=== PATIENT | male | born 1950 | race Caucasian/White ===

== ENCOUNTER → 2020-05-21 | Day surgery (SDC) | payer MEDICARE ==
--- NOTE | 2020-05-19 20:59 | Pre Op History & Physical ---
DATE OF SURGERY: May 21, 2020. CHIEF COMPLAINT: Hoarseness. HISTORY OF PRESENT ILLNESS: This 69-year-old male is a one pack-a-day smoker and a reformed alcoholic. The patient has been hoarse according to him for two months. The patient denies any dysphagia or odynophagia. The patient has some weight loss by choice. He has seen Dr. Josie Monet, an transport rn, which he had a panendoscopy and biopsy apparently was negative for malignancy. The medical record has not arrived at the time of this dictation. The patient has no throat pain. He denies any dysphagia, odynophagia, or shortness of breath. ALLERGIES: HE HAS NO KNOWN ALLERGY TO MEDICATION. MEDICATIONS: He is on metformin, gabapentin, lisinopril. Pantoprazole and atorvastatin. SOCIAL HISTORY: He smokes about a pack a day and has not drunk for 17 years. The patient has previous examination under anesthesia according to him of the larynx by another transport rn. No other surgery was noted. REVIEW OF SYSTEMS: System review showed no recent cardiovascular, respiratory, or GI problem. PAST MEDICAL HISTORY: The patient has type 2 diabetes. He has no hypertension or coronary artery disease. The patient has no significant medical problems. PAST SURGICAL HISTORY: No other surgery the patient could recall. PHYSICAL EXAMINATION: VITAL SIGNS: The patient's vital signs were within normal limits. EAR EXAM: Showed normal tympanic membrane bilaterally. NASAL EXAM: Showed deviated nasal septum on the right side about 40%. OROPHARYNX AND ORAL CAVITY: Show no obvious abnormality. Nasal endoscopy showed the patient has mobile vocal cords bilaterally with no lesion in the hypopharynx. 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 NECK: Showed no lymph node or thyroid palpable. CHEST: Showed good air entry bilaterally. CARDIOVASCULAR: Showed S1, S2. No murmur noted. ASSESSMENT AND PLAN: Mr. 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 The suggested treatment is panendoscopy, microlaryngoscopy, and biopsy and other necessary procedures. Complication of procedure includes but not limited to bleeding, infection, perforation of the esophagus, pneumomediastinum, mediastinitis, airway compromise, persistent hoarseness, persistent recurrence of the problem, and airway compromise. Alternatives will be continued observation, repeat flexible laryngoscopy exam and biopsy of the vocal cord in the office setting. The patient has elected to undergo surgical procedure. The patient had requested that because he was a reformed alcoholic no pain medication be given. Kiko Bolaños MD DKH/MODL /[id number] cc: Norman Alarcon MD
[~2020-05-21] MED LIST: ASPIRIN81 MG PO; DEXAMETHASONE SOD PHOS INJ 4 MG/ML VIAL ONE; EPINEPHRINE HCL 1:1000 1ML 1 MG/ML AMP ONE; FENTANYL CITRATE/PF 100MCG/2 ML INJ ONE; GABAPENTIN600 MG PO; LIDOCAINE HCL (LTA) 4 ML SOLN ONE; LIDOCAINE HCL 2% LOCAL INJ 5 ML SDV VIAL INJ ONE; LIPITOR10 MG PO; LISINOPRIL10 MG PO; METFORMIN HCL500 MG PO; MULTI-VITAMIN1 EACH PO; ONDANSETRON HCL INJ 2MG/ML 2ML 2 MG/ML VIAL ONE; PANTOPRAZOLE SO40 MG PO; PROPOFOL IV EMULSION 10 MG/ML 20 ML VIAL ONE; ROCURONIUM BROMIDE 10 MG/ML 5ML VIAL IV ONE; SEVOFLURANE INHAL SOLN 250 ML PEN BTL ONE; SUGAMMADEX SODIUM 200 MG/2 ML VIAL IV ONE
--- NOTE | 2020-05-21 10:00 | Diagnostic Imaging Report ---
EXAMINATION: CHEST 2 VIEWS INDICATION: Preop for neck biopsy ^PREOP ^[id number] ^[id number] ^BED 7 PREOP COMPARISON: None FINDINGS: TUBES and LINES: None. LUNGS: Lungs are well inflated. Lungs are clear. There is no evidence of pneumonia or pulmonary edema. PLEURA: No pleural effusion or pneumothorax. HEART AND MEDIASTINUM: The cardiomediastinal silhouette is unremarkable. BONES AND SOFT TISSUES: No acute osseous lesion. Soft tissues are unremarkable. UPPER ABDOMEN: No free air under the diaphragm. IMPRESSION: No acute thoracic abnormality. Signed by: Dr. Anselmo Mayfield M.D. on 05/21/2020 9:57 AM
[2020-05-21 11:55] VITALS: BP 124/58
--- NOTE | 2020-05-21 13:33 | Operative Report ---
DATE OF PROCEDURE: 05/21/2020 SURGEON: Kiko Bolaños MD CHIEF COMPLAINT: Hoarseness with chronic changes in vocal folds on both sides. POSTOPERATIVE DIAGNOSIS: Hoarseness with chronic changes in vocal folds on both sides. OPERATIVE PROCEDURE: Direct laryngoscopy, rigid esophagoscopy, rigid bronchoscopy, microlaryngoscopy, and biopsy of the right and left vocal folds with micro flaps. ANESTHESIA: Anesthesiology group. INDICATIONS: This 69-year-old male has a 51 year smoking history. The patient has a few year history of hoarseness. He had a biopsy by Dr. Monet a while ago was apparently negative. The patient has persistent hoarseness. 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 It was decided that panendoscopy, microlaryngoscopy and biopsy and other necessary procedure will be beneficial for him. DESCRIPTION OF PROCEDURE: The patient was taken to the operating room, put under general anesthesia, endotracheally intubated. The patient was appropriately positioned. The rigid esophagoscopy was performed. Esophagoscope was passed through the cricopharyngeus muscle. The esophagus was examined to about 25 cm from the incisor. No abnormality was noted. Esophagoscope was retrieved. Rigid bronchoscopy was performed. A size #4 bronchoscope with Sams wire was used. A size #4 bronchoscope with Sams wire was passed parallel to the endotracheal tube. Endotracheal tube cuff was deflated. Trachea was examined down to the hilario. No abnormality was noted. The bronchoscope was retrieved endotracheal tube cuff was reinflated. The direct laryngoscopy was performed. The Dedo laryngoscope was used. Oropharynx and oral cavity were examined. No abnormality was noted. The larynx was examined. Leukoplakia was noted in both true vocal folds. The microlaryngoscopy was performed. The laryngoscope was put on suspension and operating microscope was brought in. The false vocal folds were examined, no abnormality was noted. True vocal folds examined, again leukoplakia was noted in both vocal folds, worse on the left side. Micro flap biopsy was undertaken. With microlaryngeal instruments, the left vocal folds was approached first. The vocal fold was retracted medially. An incision was made in the superior portion of the vocal fold. A micro flap was elevated in the submucosal plane and this was dissected out and the leukoplakic mucosa was biopsied and sent for permanent section. The right vocal fold was examined. The vocal fold was retracted medially. An incision was made in the superior portion of the right vocal fold. A micro flap was elevated in the Jaqueline space. The leukoplakic vocal fold flap was dissected and sent for permanent section. Hemostasis on the vocal folds was achieved using the 1% soaked pledget. These were subsequently removed. The patient tolerated the above procedure well with minimal blood loss. He was given 20 mg of Decadron intraoperatively. The patient was able to be transferred to recovery room in stable condition. Kiko Bolaños MD DKH/MODL /[id number] cc: Norman Alarcon MD
== END | disposition home or self-care (01) ==
LOC: OR 08:48
PROVIDERS: ATTEND Otolaryngology Otolaryngology/Facial Plastic Surgery
DX: J38.3 Other diseases of vocal cords (principal); R49.0 Dysphonia; E11.9 Type 2 diabetes mellitus without complications; K21.9 Gastro-esophageal reflux disease without esophagitis; I10 Essential (primary) hypertension; F17.210 Nicotine dependence, cigarettes, uncomplicated; Z79.82 Long term (current) use of aspirin; Z79.84 Long term (current) use of oral hypoglycemic drugs
CPT/HCPCS: 31536; 31622; 36415; 43191; 71046; 82948; 88305; 93005; J0171; J1100; J2001; J2405; J2704; J3010